=== PATIENT | female | born 1970 | race Caucasian/White ===

== ENCOUNTER 2024-01-21 11:16 | Emergency (ER) | payer SELFPAY ==
[2024-01-21] VITALS (8 sets, daily range): BP systolic 120–174; BP diastolic 70–83; PULSE 53–65; RESP 13–22; TEMP 36.6; O2SAT 98–100; BMI 22.4
--- NOTE | 2024-01-21 11:28 | DI.RAD.S_ITS ---
PROCEDURE: XR CHEST 1V INDICATIONS: chest pain TECHNIQUE: One view of the chest was acquired. COMPARISON: None. FINDINGS: Surgical changes and devices: None. Lungs and pleura: Lungs are clear. No pleural effusions or pneumothorax. Mediastinum: Mediastinal contours appear normal. Heart size is normal. Bones and chest wall: No suspicious bony lesions. Overlying soft tissues appear unremarkable. IMPRESSION: No acute cardiopulmonary abnormality is seen. Dictated by: Uriah Herrera M.D. on 01/21/2024 at 11:00 Approved by: Uriah Herrera M.D. on 01/21/2024 at 11:01
[2024-01-21 11:53] LABS: Add Manual Diff / Slide Review NO; Basophils Absolute Auto 0 /uL (0-100); Basophils Percent Auto 0.8 % (0-2); Eosinophils Absolute Auto 100 /uL (0-450); Eosinophils Percent Auto 1.8 % (2-4); Hematocrit 39.1 % (36-46); Hemoglobin 13.3 g/dL (12.0-16.0); Lymphocytes Absolute Auto 1900 /uL (1100-4500); Lymphocytes Percent Auto 34.8 % (25-40); Mean Corpuscular HGB Conc 34.1 % (30-36); Mean Corpuscular Hemoglobin 29.1 PG (26-34); Mean Corpuscular Volume 85.4 fL (80-100); Monocytes Absolute Auto 400 /uL (0-900); Monocytes Percent Auto 6.5 % (3-14); Neutrophils Absolute Auto 3100 /uL (1500-7000); Neutrophils Percent Auto 56.1 % (50-75); Platelet Count 236 X10^3/uL (150-400); Red Blood Cell Count 4.58 X10^6/uL (4.0-5.2); Red Cell Distribution Width 14.4 % (11.6-14.8); White Blood Cell Count 5.5 X10^3/uL (4.5-11.0)
[2024-01-21 12:05] LABS: Alanine Aminotransferase 24 IU/L (<35); Albumin 4.6 g/dL (3.5-5.0); Albumin Globulin Ratio 1.6 (1.0-2.8); Alkaline Phosphatase 66 U/L (38-126); Aspartate Aminotransferase 32 IU/L (14-36); BUN Creatinine Ratio 24.4 (6-22); Bilirubin Total 0.5 mg/dL (0.2-1.3); Blood Urea Nitrogen 19 mg/dL (7-17); Calcium 9.7 mg/dL (8.4-10.2); Carbon Dioxide 29 mmol/L (22-32); Chloride 106 mmol/L (98-107); Creatine Kinase 163 U/L (30-135); Estimated Glomerular Filt Rate > 60 mL/min (>60); Globulin 2.8 g/dL (1.7-4.1); Glucose 105 mg/dL (70-100); HEMOLYSIS 24 (0-50); Lipase 43 U/L (23-300); Potassium 3.8 mmol/L (3.4-5.1); Sodium 141 mmol/L (137-145); Total Protein 7.4 g/dL (6.3-8.2)
[2024-01-21 12:16] LABS: Troponin I < 0.012 ng/mL (0.01-0.034)
--- NOTE | 2024-01-21 13:03 | PC.NURSE ---
Left and right arm pain radiating to jaw. With dizziness at [facility] when sitting.
--- NOTE | 2024-01-21 13:39 | ED_ITS ---
HPI - Chest Pain General Chief Complaint: Chest Pain Stated Complaint: lightheadedness heart issues passing out Time Seen by Provider: 01/21/24 13:32 Source: patient Mode of arrival: Ambulatory Limitations: no limitations Limitations: no limitations History of Present Illness HPI narrative: 53-year-old female who presents with complaint of feeling lightheaded while at [facility] patient states she was seated, her right hand sort of felt funny she felt like her shoulder dropped down that she felt the same thing with her left shoulder and then sort of her head dropped. She states this happened a couple times. She felt like she might pass out she did not ever lose consciousness. States her sort of knocked her and woke her up more. She states they decided to leave [facility] went for a walk that was somewhat helpful but still had symptoms few times where her shoulder felt like it dropped. She states she has had similar episodes in the past sort of sporadically. She had been told in the past her heart rate sometimes drops down and she should get up and walk around. She has had Holter monitors in the past never caught anything. She states she has had palpitations on and off in the past but nothing recently. She denies any syncope today, no chest pain, no shortness of breath, no nausea or vomiting. She felt a little chilled but no fevers. No issues with bowel movements or urination, no swelling of extremities. She states he took her supplements this morning but had not had anything to eat or drink until she was given something here by nursing staff. She states she does feel better now. She states she takes an aspirin daily and supplements as her only medications. Remote history of back surgery and thyroid surgery. No known drug allergies. No tobacco, no regular alcohol or recreational drugs. No current primary care physician. No long distance travel. She is accompanied by her . Related Data Allergies Allergy/AdvReac Type Severity Reaction Status Date / Time No Known Drug Allergies Allergy Verified 01/21/24 11:28 Review of Systems Review of Systems ROS Unobtainable: All systems reviewed & are unremarkable except as noted in HPI and below Patient History Social History Smoking Status: Never smoker Smoking Status: Never smoker Substance Use Type: does not use Exam Narrative Exam Narrative: GENERAL: Alert and oriented x three, well-appearing female in mild distress HEENT: Head normocephalic, atraumatic, EOMI, pupils reactive, face symmetric, moist mucous membranes NECK: Supple, full range of motion CARDIOVASCULAR: Regular rate and rhythm without murmurs, rubs or gallops. No JVD. 2+ pulses bilateral upper extremities. RESPIRATORY: Breath sounds equal bilaterally, no wheezes rales or rhonchi. ABDOMEN: Soft, nontender. Normoactive bowel sounds all 4 quadrants. No guarding or rebound, rigidity, no mass : No CVA tenderness EXTREMITIES: Normal range of motion, no clubbing or edema. Neurovascularly intact NEUROLOGICAL: Cranial nerves II through XII grossly intact. Moving all extremities SKIN: Warm, dry, no petechiae, no rashes or lesions. Initial Vital Signs Initial Vital Signs: Vital Signs Temperature 97.8 F 01/21/24 11:25 Pulse Rate 57 L 01/21/24 11:25 Respiratory Rate 16 01/21/24 11:25 Blood Pressure 174/83 H 01/21/24 11:25 Pulse Oximetry 100 01/21/24 11:25 Oxygen Delivery Method Room Air 01/21/24 11:25 Course Orders Ordered: ED Orders 01/21/24 11:28 XR chest 1V Stat EKG-12 Lead Stat 01/21/24 11:44 Complete Blood Count AUTO DIFF Stat Comprehensive Metabolic Panel Stat Lipase Stat Troponin & CK Cardiac Panel Stat Discontinued Medications Aspirin (Aspirin 81 Mg Chew Tab) 324 mg PO NOW ONE Stop: 01/21/24 11:29 Last Admin: 01/21/24 11:46 Dose: Not Given Documented By: KW Vital Signs Vital signs: Vital Signs - 8 hr 01/21/24 11:25 01/21/24 13:10 01/21/24 13:11 Temperature 97.8 F Pulse Rate 57 L 55 L 65 Respiratory Rate 16 20 Blood Pressure 174/83 H 132/76 Pulse Oximetry 100 100 100 Oxygen Delivery Method Room Air Room Air 01/21/24 13:14 01/21/24 13:14 01/21/24 13:30 Temperature Pulse Rate 53 L Respiratory Rate Blood Pressure 138/70 120/77 Pulse Oximetry 100 Oxygen Delivery Method 01/21/24 13:30 01/21/24 14:00 01/21/24 14:00 Temperature Pulse Rate 55 L 58 L Respiratory Rate 13 Blood Pressure 121/79 Pulse Oximetry 98 99 Oxygen Delivery Method 01/21/24 14:32 01/21/24 14:33 01/21/24 14:33 Temperature Pulse Rate 57 L 56 L Respiratory Rate 22 19 Blood Pressure 130/77 Pulse Oximetry 99 Oxygen Delivery Method Room Air MDM - Chest Pain Lab Data 01/21/24 11:44 01/21/24 11:44 Labs: Lab Results 01/21/24 Range/Units 11:44 WBC 5.5 (4.5-11.0) X10^3/uL RBC 4.58 (4.0-5.2) X10^6/uL Hgb 13.3 (12.0-16.0) g/dL Hct 39.1 (36-46) % MCV 85.4 (80-100) fL MCH 29.1 (26-34) PG MCHC 34.1 (30-36) % RDW 14.4 (11.6-14.8) % Plt Count 236 (150-400) X10^3/uL Neut % (Auto) 56.1 (50-75) % Lymph % (Auto) 34.8 (25-40) % [place] % (Auto) 6.5 (3-14) % Eos % (Auto) 1.8 L (2-4) % Baso % (Auto) 0.8 (0-2) % Neut # (Auto) 3100 (6565-2016) /uL Lymph # (Auto) 1900 (0861-5100) /uL [place] # (Auto) 400 (0-900) /uL Eos # (Auto) 100 (0-450) /uL Baso # (Auto) 0 (0-100) /uL Sodium 141 (137-145) mmol/L Potassium 3.8 (3.4-5.1) mmol/L Chloride 106 (98-107) mmol/L Carbon Dioxide 29 (22-32) mmol/L BUN 19 H (7-17) mg/dL Creatinine 0.78 (0.52-1.04) mg/dL Estimated GFR > 60 (>60) mL/min BUN/Creatinine Ratio 24.4 H (6-22) Glucose 105 H (70-100) mg/dL Calcium 9.7 (8.4-10.2) mg/dL Total Bilirubin 0.5 (0.2-1.3) mg/dL AST 32 (14-36) IU/L ALT 24 (<35) IU/L Alkaline Phosphatase 66 (38-126) U/L Total Creatine Kinase 163 H (30-135) U/L Troponin I < 0.012 (0.01-0.034) ng/mL Total Protein 7.4 (6.3-8.2) g/dL Albumin 4.6 (3.5-5.0) g/dL Globulin 2.8 (1.7-4.1) g/dL Albumin/Globulin Ratio 1.6 (1.0-2.8) Lipase 43 (23-300) U/L Imaging Data Chest x-ray: Radiologist's Impression: [address] [address] XRay Report Signed Patient: Hue Lyn MR#: [id number] : 1970 Acct:[id number] Age/Sex: 53 / F Date of Service: 01/21/24 Loc: ED Accession Number: [id number] Procedure: XR chest 1V Ordering Provider: Regina Pike D.O. PROCEDURE: XR CHEST 1V INDICATIONS: chest pain TECHNIQUE: One view of the chest was acquired. COMPARISON: None. FINDINGS: Surgical changes and devices: None. Lungs and pleura: Lungs are clear. No pleural effusions or pneumothorax. Mediastinum: Mediastinal contours appear normal. Heart size is normal. Bones and chest wall: No suspicious bony lesions. Overlying soft tissues appear unremarkable. IMPRESSION: No acute cardiopulmonary abnormality is seen. Dictated by: Uriah Herrera M.D. on 01/21/2024 at 11:00 Approved by: Uriah Herrera M.D. on 01/21/2024 at 11:01 ECG Data Attestation: I personally reviewed and interpreted this ECG as follows: Prior ECG tracings: not available for review Interpretation: Rate of 57, sinus bradycardia GA 176 QRS of 90 QTC of 4 7, no acute ST changes. No priors for comparison. MDM Narrative Medical decision making narrative: 53-year-old female who comes in with complaint of lightheadedness, possible near-syncope, patient states she did not have any loss of consciousness. Patient states she has had issues in the past but not for some time. Heart rates in the 50s she states normal 60-70. She does note she has not had anything to eat or drink today until she was given nicolas kimberly here in the department. Patient's EKG shows sinus bradycardia no priors for comparison but no ST changes noted. Labs show normal white count no anemia normal platelets normal renal function, BUN 19, electrolytes are otherwise appropriate, glucose is 105 with negative LFTs. Troponin was less than 0.012. Chest x-ray was negative for acute she is feeling improved after drinking fluids here in the department. Patient's discussed plan for follow up, possible ZIO patch Holter monitor. She does note she has had these in the past but not recently. Discharge Plan Departure Patient Disposition: Home Clinical Impression: Lightheadedness Activity Restrictions/Additional Instructions: Follow up with primary care for recheck. Your EKG does show sinus bradycardia with a rate in the 50s today. Otherwise your labs are overall appropriate. Make sure you are eating and drinking and staying hydrated. If you have recurrent symptoms would recommend follow up with ZIO patch or Holter monitor. Please return for recurrent lightheadedness or passing out, headaches, new chest pain or shortness of breath, new weakness, numbness, persistent vomiting, black or bloody stools or other new or concerning changes. Stand Alone Forms: Patient Portal/API
== END 2024-01-21 15:00 | disposition home or self-care (01) ==
PROVIDERS: Emergency Provider Emergency Medicine
DX: R42 Dizziness and giddiness (principal); R07.9 Chest pain, unspecified; R00.1 Bradycardia, unspecified
CPT/HCPCS: 71045; 80053; 82550; 83690; 84484; 85025; 93005; 99283; 99284